=== PATIENT | female | born 1945 | race Caucasian/White ===

== ENCOUNTER 2021-11-24 05:44 | Day surgery (SDC) | payer MEDICARE, BC ==
[2021-11-16 12:44] LABS: BASOPHILS % (AUTO) 0.6 % (0-1); EOSINOPHILS # (AUTO) 0.1 X10'3 (0-0.9); EOSINOPHILS % (AUTO) 3.9 % (0-6); LYMPHOCYTES # (AUTO) 0.8 X10'3 (1.1-4.8); LYMPHOCYTES % (AUTO) 32.8 % (21-51); MEAN CORPUSCULAR HEMOGLOBIN 28.8 PG (27.0-31.0); MEAN CORPUSCULAR VOLUME 87.5 FL (78-98); MEAN PLATELET VOLUME 9.1 FL (7.4-10.4); MONOCYTES # (AUTO) 0.2 X10'3 (0-0.9); MONOCYTES % (AUTO) 7.7 % (2-12); NEUTROPHILS # (AUTO) 1.3 X10'3 (1.8-7.7); PRE OP HEMATOCRIT 36.6 % (35.0-45.0); PRE OP HEMOGLOBIN 12.1 g/dL (12.0-16.0); RED BLOOD COUNT 4.18 X10'6 (4.20-5.60); RED CELL DISTRIBUTION WIDTH 16.9 % (11.5-14.5)
[2021-11-16 13:03] LABS: CLARITY,URINE CLOUDY (Clear); COLOR,URINE YELLOW (Yellow); GLUCOSE, URINE NEGATIVE (Neg); KETONES,URINE NEGATIVE (Neg); LEUKOCYTE ESTERASE ,URINE NEGATIVE (Neg); NITRITES, URINE POSITIVE (Neg); OCCULT BLOOD,URINE SMALL (Neg); PH,URINE 6.5 (4.8-8.0); PROTEIN,URINE NEGATIVE (Neg)
[2021-11-16 13:04] LABS: UA COLLECTION TYPE CLN CATCH MIDSTREAM
[2021-11-16 13:10] LABS: ALBUMIN 2.4 G/DL (3.4-5.0); ALBUMIN/GLOBULIN RATIO 0.6 (1.1-1.5); ALKALINE PHOSPHATASE 79 IU/L (46-116); BLOOD UREA NITROGEN 11 MG/DL (7-18); BUN/CREATININE RATIO 13.6 (6.6-38.0); CALCIUM 8.3 MG/DL (8.5-10.1); CREATININE 0.81 MG/DL (0.40-0.90); PRE OP ALT 17 U/L (30-65); PRE OP AST 39 U/L (10-37); PRE OP BILIRUB, TOTAL 2.5 MG/DL (0.0-1.0); PRE OP GLUCOSE 86 MG/DL (70-104); TOTAL CARBON DIOXIDE 27.3 MMOL/L (24-32); TOTAL PROTEIN 6.2 G/DL (6.4-8.2); eGFR 69 ML/MIN
[2021-11-16 13:15] LABS: PRE OP PLATELET COUNT 34 X10'3 (140-440)
[2021-11-16 13:26] LABS: CHLORIDE 109 MMOL/L (99-107); PRE OP ANION GAP 7 (8-16); PRE OP POTASSIUM 3.4 MMOL/L (3.4-5.1); PRE OP SODIUM 143 MMOL/L (135-145)
[2021-11-16 13:29] LABS: BACTERIA,URINE 3+ /HPF (Neg); CAL OXALATE CRYSTALS FEW /HPF (NEGATIVE); MUCUS STRANDS MANY /LPF (Neg)
[2021-11-16 13:30] LABS: SQUAMOUS EPITHELIAL CELL,UR MANY /LPF (FEW)
[2021-11-16 15:52] LABS: TOTAL CELLS COUNTED 100
[2021-11-16 15:53] LABS: ANISOCYTOSIS 1+; PLATELET ESTIMATE DECREASED
[2021-11-16 15:56] LABS: ELLIPTOCYTES 1+
[~2021-11-24] VITALS: Ht 172.7 cm; Wt 62.3 kg
[2021-11-24] VITALS (20 sets, daily range): BP systolic 119–146; BP diastolic 46–61
[~2021-11-24 05:44] MED LIST: CHOL20004 PO; FURO20TA4 PO; HYDR50TA65 PO; SPIR50TA5 PO; TRAZ-251 PO; ceFAZolin inj. 2,000 MG in dextrose 5%-water 100 ML IV ONE; famotidine 20mg tablet PO ONE; ringers solution, lacted 1,000 ML IV SCH
--- NOTE | 2021-11-24 06:00 | NUR ---
ADMINISTERED PLATELETS ON PAS. USED DOWNTIME FORM WITH TWO RN SIGNATURES. VERIFIED PLATELETS WITH LAB. ANESTHESIOLOGIST ORDERED LABS STAT. ROSA BLOOD AND ORDERED LABS (CBC, CMP, ALT, AST). DID COVID SWAB ON PAS.
[2021-11-24] MEDS ORDERED: BUPIVAcaine 0.5% inj/PF 30 ML ONE (06:43)
[2021-11-24] MEDS ORDERED: ondansetron/PF 4mg/2ml inj IV PRN (07:50)
[2021-11-24] MEDS ORDERED: ringers solution, lacted 1,000 ML IV SCH (07:50)
[2021-11-24] MEDS ORDERED: meperidine/PF 25mg/ml syringe IV PRN ×3 (07:50)
[2021-11-24] MEDS ORDERED: proCHLORperazine 10 MG/2 ml inj IV PRN (07:50)
[2021-11-24] MEDS ORDERED: dexamethasone sod phosphate 10mg/ml inj ONE (07:55)
[2021-11-24] MEDS ORDERED: neostigmine methylsulfate 1 MG/ML 10ml vial ONE (07:55)
[2021-11-24] MEDS ORDERED: desflurane 240ml liquid inh. IH ONE (07:55)
[2021-11-24] MEDS ORDERED: desmopressin inj. 20 MCG in normal saline 100ml IV soln 95 ML IV ONE (08:10)
[2021-11-24 08:13] LABS: BASOPHILS % (AUTO) 0.5 % (0-1); EOSINOPHILS # (AUTO) 0.1 X10'3 (0-0.9); EOSINOPHILS % (AUTO) 2.3 % (0-6); LYMPHOCYTES # (AUTO) 0.8 X10'3 (1.1-4.8); LYMPHOCYTES % (AUTO) 28.8 % (21-51); MEAN CORPUSCULAR HEMOGLOBIN 28.9 PG (27.0-31.0); MEAN CORPUSCULAR VOLUME 87.8 FL (78-98); MEAN PLATELET VOLUME 8.9 FL (7.4-10.4); MONOCYTES # (AUTO) 0.2 X10'3 (0-0.9); MONOCYTES % (AUTO) 6.5 % (2-12); NEUTROPHILS # (AUTO) 1.6 X10'3 (1.8-7.7); NEUTROPHILS % (AUTO) 61.9 % (42-75); PRE OP HEMATOCRIT 36.2 % (35.0-45.0); PRE OP HEMOGLOBIN 11.9 g/dL (12.0-16.0); RED BLOOD COUNT 4.13 X10'6 (4.20-5.60); RED CELL DISTRIBUTION WIDTH 16.3 % (11.5-14.5)
[2021-11-24] MEDS ORDERED: fentaNYL/PF 50MCG/1 ML 2ML syringe ONE (08:13)
[2021-11-24] MEDS ORDERED: midazolam 1 mg/ML 2ml injection ONE (08:14)
[2021-11-24 08:15] LABS: PRE OP PLATELET COUNT 39 X10'3 (140-440)
[2021-11-24] MEDS ORDERED: LIDOcaine 2% (20mg/ml) 5ml vial ONE (08:17)
[2021-11-24] MEDS ORDERED: propofol inj 20 ML IV ONE (08:17)
[2021-11-24 08:32] LABS: ALBUMIN 2.6 G/DL (3.4-5.0); ALBUMIN/GLOBULIN RATIO 0.7 (1.1-1.5); ALKALINE PHOSPHATASE 70 IU/L (46-116); BLOOD UREA NITROGEN 12 MG/DL (7-18); BUN/CREATININE RATIO 15.8 (6.6-38.0); CALCIUM 8.6 MG/DL (8.5-10.1); CHLORIDE 110 MMOL/L (99-107); CREATININE 0.76 MG/DL (0.40-0.90); PRE OP ALT 15 U/L (30-65); PRE OP ANION GAP 9 (8-16); PRE OP AST 37 U/L (10-37); PRE OP BILIRUB, TOTAL 2.5 MG/DL (0.0-1.0); PRE OP GLUCOSE 91 MG/DL (70-104); PRE OP POTASSIUM 3.8 MMOL/L (3.4-5.1); PRE OP SODIUM 145 MMOL/L (135-145); TOTAL CARBON DIOXIDE 25.8 MMOL/L (24-32); TOTAL PROTEIN 6.2 G/DL (6.4-8.2); eGFR 74 ML/MIN
[2021-11-24 08:59] LABS: TOTAL CELLS COUNTED 100
[2021-11-24 09:00] LABS: ANISOCYTOSIS 1+; PLATELET ESTIMATE DECREASED
[2021-11-24] MEDS ORDERED: BUPIVAcaine 0.5% inj/PF 30 ml vial IJ ONE (09:14)
[2021-11-24] MEDS ORDERED: rocuronium 10mg/ml inj IV ONE (09:28)
[2021-11-24] MEDS ORDERED: glycopyrrolate 0.2mg/ml inj ONE (09:35)
[2021-11-24] MEDS ORDERED: ondansetron/PF 4mg/2ml inj ONE (09:35)
--- NOTE | 2021-11-24 09:38 | NUR ---
Received from OR via [facility], 20G TO RIGHT AC, LAP SITES X 3 WITH BANDAIDS CDI , accompanied by Anesthesiologist DR GALLAGHER and report given by Anesthesiolgist. Addendum: 11/24/21 at 1003 by Cherie Oh RN Amended: Links added.
--- NOTE | 2021-11-24 13:38 | NUR ---
PATIENT A&OX4, DENIES PAIN, V/S STABLE, ABDOMEN LAP SITE CDI W/ NO S/S OF BLEEDING OR COMPLICATIONS, IV D/C, PATIENT HAS VOIDED. I HAVE REVIEWED D/C INSTRUCTIONS WITH PATIENT AND FAMILY AND THEY HAVE VERBALIZED UNDERSTANDING. PATIENT D/C HOME WITH ALL BELONGINGS AND FAMILY GAVE TRANSPORT HOME. ANNA WAS ALSO ABLE TO STOP IN AND SPEAK WITH FAMILY PRIOR TO D/C AND ASSURE THEM PATIENT WAS READY FOR D/C HOME WELL.
== END 2021-11-24 13:38 | disposition home or self-care (01) ==
LOC: PAS 05:44
PROVIDERS: ATTEND Surgery
DX: K40.90 Unilateral inguinal hernia, without obstruction or gangrene, not specified as recurrent (principal); D69.6 Thrombocytopenia, unspecified; F32.A Depression, unspecified; F41.9 Anxiety disorder, unspecified; E55.9 Vitamin D deficiency, unspecified; J44.9 Chronic obstructive pulmonary disease, unspecified; G43.909 Migraine, unspecified, not intractable, without status migrainosus; Z20.822 Contact with and (suspected) exposure to COVID-19; Z87.891 Personal history of nicotine dependence; Z72.89 Other problems related to lifestyle; Z79.899 Other long term (current) drug therapy; Z98.890 Other specified postprocedural states; Z90.710 Acquired absence of both cervix and uterus; Z87.442 Personal history of urinary calculi; Z91.09 Other allergy status, other than to drugs and biological substances; Z88.5 Allergy status to narcotic agent; Z88.8 Allergy status to other drugs, medicaments and biological substances; Z80.3 Family history of malignant neoplasm of breast; Z83.3 Family history of diabetes mellitus
CPT/HCPCS: 36415; 36430; 49650; 71046; 80053; 81001; 82948; 85025; 86885; 86900; 86901; 86920; 87081; 93005; C1758; C1781; J0690; J1100; J2175; J2250; J2405; J2597; J2704; J2710; J3010; J3490; J7030; J7060; J7120; P9035; S0020; U0003; U0005; Z7506; Z7508; Z7512; 85007; A4215; A4618; A7000

== ENCOUNTER 2022-03-23 09:07 | Day surgery (SDC) | payer MEDICARE, BC ==
[2022-03-22 10:43] LABS: CLARITY,URINE CLEAR (Clear); COLOR,URINE YELLOW (Yellow); GLUCOSE, URINE NEGATIVE (Neg); KETONES,URINE TRACE mg/dl (Neg); LEUKOCYTE ESTERASE ,URINE NEGATIVE (Neg); NITRITES, URINE NEGATIVE (Neg); OCCULT BLOOD,URINE MODERATE (Neg); PROTEIN,URINE NEGATIVE (Neg); UROBILINOGEN,URINE 0.2 E.U/dL (0.2-1.0)
[2022-03-22 10:44] LABS: UA COLLECTION TYPE CLN CATCH MIDSTREAM
[2022-03-22 10:50] LABS: BASOPHILS % (AUTO) 0.4 % (0-1); EOSINOPHILS # (AUTO) 0.1 X10'3 (0-0.9); EOSINOPHILS % (AUTO) 1.8 % (0-6); LYMPHOCYTES # (AUTO) 0.9 X10'3 (1.1-4.8); LYMPHOCYTES % (AUTO) 20.1 % (21-51); MEAN CORPUSCULAR HEMOGLOBIN 29.5 PG (27.0-31.0); MEAN CORPUSCULAR HGB CONC 33.1 g/dL (33.0-36.5); MEAN PLATELET VOLUME 8.1 FL (7.4-10.4); MONOCYTES # (AUTO) 0.4 X10'3 (0-0.9); MONOCYTES % (AUTO) 8.1 % (2-12); NEUTROPHILS # (AUTO) 3.2 X10'3 (1.8-7.7); NEUTROPHILS % (AUTO) 69.6 % (42-75); PRE OP HEMATOCRIT 33.2 % (35.0-45.0); RED BLOOD COUNT 3.73 X10'6 (4.20-5.60); RED CELL DISTRIBUTION WIDTH 16.7 % (11.5-14.5)
[2022-03-22 10:56] LABS: PRE OP INR 1.3 INR; PRE OP PROTIME 13.3 SECONDS (9.0-12.0)
[2022-03-22 11:05] LABS: ALBUMIN 2.2 G/DL (3.4-5.0); ALBUMIN/GLOBULIN RATIO 0.4 (1.1-1.5); ALKALINE PHOSPHATASE 73 IU/L (46-116); BLOOD UREA NITROGEN 22 MG/DL (7-18); CALCIUM 8.8 MG/DL (8.5-10.1); CHLORIDE 104 MMOL/L (99-107); PRE OP ALT 11 U/L (30-65); PRE OP ANION GAP 8 (8-16); PRE OP AST 28 U/L (10-37); PRE OP GLUCOSE 144 MG/DL (70-104); PRE OP SODIUM 140 MMOL/L (135-145); TOTAL CARBON DIOXIDE 28.3 MMOL/L (24-32); TOTAL PROTEIN 7.4 G/DL (6.4-8.2); eGFR 48 ML/MIN
[2022-03-22 11:08] LABS: BACTERIA,URINE 1+ /HPF (Neg); MUCUS STRANDS FEW /LPF (Neg); RENAL CELLS, URINE FEW /HPF; SQUAMOUS EPITHELIAL CELL,UR MANY /LPF (FEW)
[2022-03-22 11:09] LABS: COARSE GRANULAR CAST 0-3 /LPF (NEGATIVE)
[2022-03-22 11:12] LABS: PRE OP PLATELET COUNT 73 X10'3 (140-440)
[2022-03-22 11:17] LABS: PRE OP POTASSIUM 3.1 MMOL/L (3.4-5.1)
[2022-03-23] VITALS (22 sets, daily range): BP systolic 109–132; BP diastolic 45–82
[~2022-03-23] VITALS: Ht 172.7 cm; Wt 56.1 kg
[~2022-03-23 09:07] MED LIST changes: +CEPH-585 PO; -TRAZ-251 PO
[2022-03-23 10:20] LABS: BASOPHILS % (AUTO) 0.5 % (0-1); EOSINOPHILS # (AUTO) 0.1 X10'3 (0-0.9); EOSINOPHILS % (AUTO) 1.9 % (0-6); HEMATOCRIT 31.1 % (35.0-45.0); HEMOGLOBIN 10.3 g/dl (12.0-16.0); LYMPHOCYTES % (AUTO) 22.7 % (21-51); MEAN CORPUSCULAR HEMOGLOBIN 29.6 PG (27.0-31.0); MEAN CORPUSCULAR HGB CONC 33.1 g/dL (33.0-36.5); MEAN CORPUSCULAR VOLUME 89.5 FL (78-98); MEAN PLATELET VOLUME 8.4 FL (7.4-10.4); MONOCYTES # (AUTO) 0.4 X10'3 (0-0.9); MONOCYTES % (AUTO) 9.8 % (2-12); NEUTROPHILS # (AUTO) 2.8 X10'3 (1.8-7.7); NEUTROPHILS % (AUTO) 65.1 % (42-75); PLATELET COUNT 55 X10'3 (140-440); RED BLOOD COUNT 3.48 X10'6 (4.20-5.60); RED CELL DISTRIBUTION WIDTH 16.6 % (11.5-14.5); WHITE BLOOD COUNT 4.2 X10'3 (4.5-11.0)
[2022-03-23 10:36] LABS: ALBUMIN 2.2 G/DL (3.4-5.0); ALBUMIN/GLOBULIN RATIO 0.5 (1.1-1.5); ALKALINE PHOSPHATASE 70 IU/L (46-116); BLOOD UREA NITROGEN 22 MG/DL (7-18); BUN/CREATININE RATIO 19.8 (6.6-38.0); CALCIUM 8.8 MG/DL (8.5-10.1); CHLORIDE 105 MMOL/L (99-107); CREATININE 1.11 MG/DL (0.40-0.90); PRE OP ALT 14 U/L (30-65); PRE OP ANION GAP 6 (8-16); PRE OP AST 27 U/L (10-37); PRE OP BILIRUB, TOTAL 1.1 MG/DL (0.0-1.0); PRE OP GLUCOSE 88 MG/DL (70-104); PRE OP POTASSIUM 3.8 MMOL/L (3.4-5.1); PRE OP SODIUM 139 MMOL/L (135-145); TOTAL CARBON DIOXIDE 27.9 MMOL/L (24-32); TOTAL PROTEIN 6.9 G/DL (6.4-8.2); eGFR 48 ML/MIN
[2022-03-23] MEDS ORDERED: hydrALAZINE 20mg/ml inj. IV PRN (12:00)
[2022-03-23] MEDS ORDERED: ringers solution, lacted 1,000 ML IV SCH (12:00)
[2022-03-23] MEDS ORDERED: ondansetron/PF 4mg/2ml inj IV PRN (12:00)
[2022-03-23] MEDS ORDERED: fentaNYL/PF 50MCG/1 ML 2ML syringe IV PRN ×2 (12:00)
[2022-03-23] MEDS ORDERED: meperidine/PF 25mg/ml syringe IV PRN (12:00)
[2022-03-23] MEDS ORDERED: labetalol 20mg/4ml (5mg/ml) syringe IV PRN (12:00)
[2022-03-23] MEDS ORDERED: dexamethasone sod phosphate 10mg/ml inj ONE (12:45)
[2022-03-23] MEDS ORDERED: sevoflurane 250ml liquid IH ONE (12:45)
[2022-03-23] MEDS ORDERED: midazolam 1 mg/ML 2ml injection ONE (12:53)
[2022-03-23] MEDS ORDERED: fentaNYL/PF 50MCG/1 ML 2ML syringe ONE (12:53)
[2022-03-23] MEDS ORDERED: propofol inj 20 ML IV ONE (12:56)
[2022-03-23] MEDS ORDERED: LIDOcaine 2% (20mg/ml) 5ml vial ONE (12:56)
[2022-03-23] MEDS ORDERED: ondansetron/PF 4mg/2ml inj ONE (12:59)
--- NOTE | 2022-03-23 13:40 | NUR ---
Received from OR via [facility], accompanied by Anesthesiologist and report given by Anesthesiolgist. PT IS GROGGY BUT REPONDS TO VERBAL STIMULI AND IS ABLE TO DALE. PT PLACED ON BEDSIDE MONITOR, VSS. PT RECEIVING 8L O2 TO MASK AND TOLERATING WELL, O2 SAT >96%. WILL TITIRATE DOWN PT TOLERATED. PT HAS 20G PIV TO LEFT AC WITH LR INFUSING ORDERED. PT HAS WV TO RT GOING THAT IS CDI, MINIMAL SEROGANUINEOUS DRAINIAGE NOTED IN TUBING, CANISTER IS EMPTY AT THIS TIME. WV IS RUNNING @ 125mmHg. PT DENIES PAIN AT THIS TIME. WILL CONTINUE TO ASSESS.
[2022-03-23] MEDS: meperidine/PF 25mg/ml syringe IV PRN ×2 (13:59→14:21)
--- NOTE | 2022-03-23 14:20 | NUR ---
MULTIPLE CALLS PLACED TO DR MCLEOD'S OFFICE TO VERIFY THAT HOME HEALTH IS SET UP FOR PT. RECEIVED CONFIRMATION THAT IT HAS BEEN SET UP AND [facility] WILL BE AT PT'S RESIDENCE ON Monday03/25/22.
[2022-03-23] MEDS ORDERED: traMADol 50MG tablet PO ONE (14:40)
--- NOTE | 2022-03-23 17:35 | NUR ---
PT HAS MET D/C CRITERIA. IV D/C'D. VSS. DRESSING C/D/I. I HAVE REVIEWED D/C INSTRUCTIONS WITH PATIENT AND PT'S AND SHE HAS VERBALIZED UNDERSTANDING OF INSTRUCTIONS. PATIENT D/C HOME WITH ALL BELONGINGS AND HOME HEALTH WAS TO MANAGE PT'S W[place] AND WILL BE TO PT'S RESIDENCE Monday03/25/[address] MCLEOD'S OFFICE.
== END 2022-03-23 17:23 | disposition home or self-care (01) ==
LOC: PAS 09:07
PROVIDERS: ATTEND Surgery
DX: T81.40XA Infection following a procedure, unspecified, initial encounter (principal); T81.49XA Infection following a procedure, other surgical site, initial encounter; A49.01 Methicillin susceptible Staphylococcus aureus infection, unspecified site; Y83.8 Other surgical procedures as the cause of abnormal reaction of the patient, or of later complication, without mention of misadventure at the time of the procedure; K70.31 Alcoholic cirrhosis of liver with ascites; K76.6 Portal hypertension; Z79.01 Long term (current) use of anticoagulants; Z79.899 Other long term (current) drug therapy; Z98.890 Other specified postprocedural states; Z88.6 Allergy status to analgesic agent; Z83.3 Family history of diabetes mellitus; Z88.8 Allergy status to other drugs, medicaments and biological substances; Z87.891 Personal history of nicotine dependence; Z72.89 Other problems related to lifestyle; Z85.118 Personal history of other malignant neoplasm of bronchus and lung; Z20.822 Contact with and (suspected) exposure to COVID-19
CPT/HCPCS: 11043; 36415; 80053; 81001; 85025; 85610; 85730; 86885; 86900; 86901; 87811; 93005; 97607; J0690; J1100; J2175; J2250; J2405; J2704; J3010; J3490; J7030; J7060; J7120; Z7506; Z7512; A4618; A6550; A7000

== ENCOUNTER 2023-04-13 06:50 | Day surgery (SDC) | payer MEDICARE, BC ==
[~2023-04-13] VITALS: Ht 172.7 cm; Wt 65.1 kg
[~2023-04-13 06:50] MED LIST changes: -ceFAZolin inj. 2,000 MG in dextrose 5%-water 100 ML IV ONE; -famotidine 20mg tablet PO ONE; -ringers solution, lacted 1,000 ML IV SCH
[2023-04-13 07:18] VITALS: BP 128/63; PULSE 71; RESP 16; TEMP 97.9; O2SAT 97
[2023-04-13] MEDS ORDERED: albumin 25% 100mL bottle x 1 IV PRN (07:35)
[2023-04-13] MEDS ORDERED: FLUT1BLS4 PO (07:44)
[2023-04-13] MEDS ORDERED: ALBU17AE26 (07:44)
[2023-04-13] MEDS ORDERED: LACT10SO67 (07:44)
[2023-04-13] MEDS ORDERED: TRAZ-251 PO (07:44)
[2023-04-13] MEDS ORDERED: MAGN250T11 PO (07:45)
[2023-04-13 09:00] VITALS: BP 128/56; PULSE 73; RESP 16; O2SAT 95
== END 2023-04-13 09:20 | disposition home or self-care (01) ==
LOC: SSTAY O 06:50
PROVIDERS: ATTEND Radiology Diagnostic Radiology
DX: R18.8 Other ascites (principal); Z53.8 Procedure and treatment not carried out for other reasons; R14.0 Abdominal distension (gaseous); Z85.118 Personal history of other malignant neoplasm of bronchus and lung; Z85.841 Personal history of malignant neoplasm of brain; Z90.2 Acquired absence of lung [part of]; Z90.710 Acquired absence of both cervix and uterus; Z98.890 Other specified postprocedural states; Z92.3 Personal history of irradiation; Z88.5 Allergy status to narcotic agent; Z91.048 Other nonmedicinal substance allergy status; Z79.899 Other long term (current) drug therapy; Z82.49 Family history of ischemic heart disease and other diseases of the circulatory system; Z80.6 Family history of leukemia
CPT/HCPCS: 76705; A6258

== ENCOUNTER 2023-04-13 07:02 | Outpatient (CLI) | payer MEDICARE, BC ==
[2023-04-13] MEDS ORDERED: ALBU17AE26 (07:44)
[2023-04-13] MEDS ORDERED: FLUT1BLS4 PO (07:44)
[2023-04-13] MEDS ORDERED: TRAZ-251 PO (07:44)
[2023-04-13] MEDS ORDERED: LACT10SO67 (07:44)
[2023-04-13] MEDS ORDERED: MAGN250T11 PO (07:45)
== END 2023-04-13 23:59 | disposition home or self-care (01) ==
LOC: RAD 07:02
PROVIDERS: ATTEND Nurse Practitioner
DX: K74.69 Other cirrhosis of liver (principal); R16.1 Splenomegaly, not elsewhere classified
CPT/HCPCS: 76700; 76705; A6258

== ENCOUNTER 2025-02-07 10:15 | Outpatient (CLI) | payer MEDICARE, BC ==
[~2025-02-07 10:15] MED LIST changes: +ALBU17AE26; +ALBU2.5V7 NEB; -CEPH-585 PO; +FLUT1BLS4 PO; -FURO20TA4 PO; -HYDR50TA65 PO; +LACT-373 PO; +MULT-1085 PO; +OMEP40CA21 PO; +RIFA550T PO
[2025-02-07] MEDS ORDERED: iohexol 300mg/ml 100ml inj. ONE (10:30)
--- NOTE | 2025-02-07 11:38 | RADIOLOGY REPORT ---
Indication: PERSONAL HISTORY OF MALIGNANT NEOPLASM OF BRONCHUS Technique: CT axial images of the chest are obtained with intravenous contrast. Coronal and sagittal reformats were obtained. Radiation Dose Information: CTDI volume is 6.3 mGy. Dose-length product is 250 mGy*cm Comparison: 02/20/2022 FINDINGS: The trachea is patent. No pneumothorax. Pulmonary emphysematous changes. Bilateral atelectasis. Bila teral atelectasis. Small right pleural effusion, similar to examination from 2021. This appears locul ated. 6 mm Right upper lobe solid nodule. Heart normal in size. Coronary artery calcification disease. Aortic atherosclerotic disease. 13 mm r ight hilar lymph node. Subcarinal lymph node measuring 10 mm. No supraclavicular or axillary lymphadenopathy. Cirrhotic morphology liver. Sequela of portal hypertension including gastric varices, splenic varice s and splenomegaly. Small hiatal hernia. Moderate thoracic degenerative disc disease. Old fractures of the T11, T12 spinous processes. IMPRESSION: Small right pleural effusion that appears loculated, similar to 2021, could represent malignant effus ion, empyema. Bilateral atelectasis. 6 mm right upper lobe solid nodule. Recommend follow-up per Fleischner society criteria guidelines Pulmonary emphysematous changes. Right hilar and subcarinal lymphadenopathy Cirrhosis and sequela of portal hypertension.
== END 2025-02-07 23:59 | disposition home or self-care (01) ==
LOC: RAD 10:15
PROVIDERS: ATTEND Physician Assistant Medical
DX: J90 Pleural effusion, not elsewhere classified (principal); Z85.118 Personal history of other malignant neoplasm of bronchus and lung; J43.9 Emphysema, unspecified; I25.10 Atherosclerotic heart disease of native coronary artery without angina pectoris
CPT/HCPCS: 71260; Q9967

== ENCOUNTER 2025-04-14 09:06 | Outpatient (CLI) | payer MEDICARE, BC ==
--- NOTE | 2025-04-14 10:31 | RADIOLOGY REPORT ---
INDICATION: CIRRHOSIS OF LIVER TECHNIQUE: Multiple real-time sonographic images of the abdomen were obtained. COMPARISON: US ULTRASOUND OF ABDOMEN on DOS: 04/13/23, CT ABDOMEN PELVIS on DOS: 02/20/22, CT ABDOMEN PELVIS on DOS: 02/10/22 FINDINGS: The liver is heterogeneous in echogenicity. The liver measures 15cm. No intrahepatic biliary ductal dilatation is noted. The gallbladder wall measures 0.2 cm and is unremarkable. No gallstones or sludge is seen. The common duct measures 0.2 cm and is unremarkable. No pericholecystic fluid is noted. The right kidney measures 9cm. No hydronephrosis. The left kidney measures 9cm. No hydronephrosis. The spleen measures cm, within normal limits. The echogenicity is within normal limits. The pancreas is not well visualized due to obscuration from bowel gas. The visualized portions of the IVC and aorta are grossly unremarkable. IMPRESSION: Hepatic cirrhosis.
== END 2025-04-14 23:59 | disposition home or self-care (01) ==
LOC: RAD 09:06
PROVIDERS: ATTEND Nurse Practitioner
DX: K74.69 Other cirrhosis of liver (principal)
CPT/HCPCS: 76700